=== PATIENT | female | born 1980 | race Caucasian/White ===

== ENCOUNTER 2017-08-28 16:19 | Outpatient (CLI) | END 2017-08-28 20:15 | disposition home or self-care (01) ==

== ENCOUNTER 2017-11-16 09:08 | Outpatient (CLI) | END 2017-11-16 09:25 | disposition left against medical advice (07) ==

== ENCOUNTER 2017-11-17 10:35 | Outpatient (CLI) | END 2017-11-17 12:50 | disposition home or self-care (01) ==

== ENCOUNTER 2017-11-21 13:05 | Inpatient (IN) | END 2017-11-23 13:30 | disposition home or self-care (01) | DRG 781 ==

== ENCOUNTER 2017-11-28 09:50 | Outpatient (CLI) | END 2017-11-28 12:25 | disposition home or self-care (01) ==

== ENCOUNTER 2017-12-04 19:47 | Outpatient (CLI) | END 2017-12-04 21:55 | disposition home or self-care (01) ==

== ENCOUNTER 2017-12-12 13:55 | Inpatient (IN) | END 2017-12-13 16:28 | disposition home or self-care (01) | DRG 781 ==

== ENCOUNTER 2017-12-17 05:50 | Inpatient (IN) | END 2017-12-20 13:30 | disposition home or self-care (01) | DRG 766 ==